=== PATIENT | female | born 1980 | race African-American/Black ===

== ENCOUNTER 2021-01-27 16:35 | Emergency (ER) | payer OTHER, SELFPAY ==
[2021-01-27 16:44] VITALS: BP 120/90; PULSE 89; RESP 20; TEMP 37; O2SAT 100
--- NOTE | 2021-01-27 16:50 | ED.URI ---
HPI - URI/Sore Throat General Chief Complaint: Upper Respiratory Infection Stated Complaint: sore throat headache fatigue Time Seen by Provider: 01/27/21 16:50 Source: patient and RN notes reviewed History of Present Illness HPI Narrative: Patient is a 40-year-old female who presents the urgent care with complaints of sore throat mild congestion. Patient states she woke up with the symptoms today. States that she is vaccinated for Covid and denies of any known exposure to Covid or strep. 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 Patient denies of any fever, nausea, vomiting. States that she has had a lot of fatigue today. Denies of any illness in the home. Patient has not taken anything for her symptoms. No other acute complaints. No acute distress noted. Patient aware of the plan of care. Some parts of this dictation were generated by voice recognition software and may contain typographical and/or grammatical inaccuracies. Related Data Home Medications Medication Instructions Recorded Confirmed acyclovir [Zovirax] 400 mg PO DAILY 01/27/21 01/27/21 albuterol 90 mcg INHALATION Q6H PRN 01/27/21 01/27/21 atorvastatin [Lipitor] 20 mg PO DAILY 01/27/21 01/27/21 buspirone [BuSpar] 10 mg PO BID 01/27/21 01/27/21 cetirizine [Zyrtec] 10 mg PO DAILY 01/27/21 01/27/21 escitalopram oxalate [Lexapro] 20 mg PO DAILY 01/27/21 01/27/21 flunisolide 1 spray INTRANASAL BID 01/27/21 01/27/21 Allergies Allergy/AdvReac Type Severity Reaction Status Date / Time No Known Allergies Allergy Verified 01/27/21 16:54 Review of Systems Review of Systems: Narrative: CONSTITUTIONAL: Denies fever, chills, or sweats. Reports of fatigue EYES: Denies visual changes, redness, or discharge. ENT: Reports of mild congestion and sore throat CARDIOVASCULAR: Denies chest pain, palpitations, or edema. RESPIRATORY: Denies cough or dyspnea. GASTROINTESTINAL: Denies abdominal pain, nausea, vomiting, or diarrhea. GENITOURINARY: Denies dysuria or hematuria. SKIN: Denies rash or itching. MUSCULOSKELETAL: Denies back pain, joint pain, or myalgia. NEUROLOGIC: Denies headache, numbness, or weakness. All other systems reviewed are negative, except as documented in HPI. PMFSH Comments At the time of my signature, I reviewed and agree with the nursing past medical, surgical, social, and family history. There is no relevant family history pertinent to the patient complaint. Exam Narrative: Exam Narrative: GENERAL: This is a well-nourished, well-developed patient, in no apparent distress. HEAD: normocephalic, atraumatic. EYES: PERRL. Sclera clear/white. Vision is grossly intact. EARS: External ears normal, auditory canals clear and without drainage, TMs normal without perforation. Hearing grossly intact. NOSE: External nose normal with no obvious nasal discharge, nares without redness, no rhinorrhea. THROAT: Mucous membranes moist, posterior pharynx clear. Mild postnasal drainage NECK: Neck supple, non-tender without lymphadenopathy CARDIOVASCULAR: Regular rate and rhythm without murmurs, gallops, or rubs. RESPIRATORY: Clear to auscultation. Breath sounds equal bilaterally. No wheezes, rales, or rhonchi. SKIN: warm, intact with no suspicious lesions or rash, good texture and turgor. NEURO: awake, alert, and oriented to person, place and time. There were no obvious focal neurologic abnormalities. EXTREMITIES: No clubbing, cyanosis, or edema. Course Vital Signs Vital signs: Vital Signs Temperature 98.6 F 01/27/21 16:44 Pulse Rate 89 01/27/21 16:44 Respiratory Rate 20 01/27/21 16:44 Blood Pressure 120/90 01/27/21 16:44 Pulse Oximetry 100 01/27/21 16:44 Temperature 98.6 F 01/27/21 16:55 Pulse Rate 89 01/27/21 16:55 Respiratory Rate 20 01/27/21 16:55 Blood Pressure 120/90 01/27/21 16:55 Pulse Oximetry 100 01/27/21 16:55 Reviewed MDM - URI/Sore Throat MDM Narrative [facility]
[2021-01-27 16:55] VITALS: BP 120/90; PULSE 89; RESP 20; TEMP 37; O2SAT 100
[2021-01-28 17:52] LABS: SARS-CoV-2 RNA PCR Negative
== END 2021-01-27 17:09 | disposition home or self-care (01) ==
PROVIDERS: Emergency Provider Nurse Practitioner Family; PCP Family Medicine
DX: J02.9 Acute pharyngitis, unspecified (principal); Z20.822 Contact with and (suspected) exposure to COVID-19; E78.00 Pure hypercholesterolemia, unspecified; F41.9 Anxiety disorder, unspecified; F32.9 Major depressive disorder, single episode, unspecified
CPT/HCPCS: 87081; 87880; 99213; C9803; G0463; U0003; U0005